=== PATIENT | male | born 1930 | race Caucasian/White ===

== ENCOUNTER 2020-08-29 08:56 | Outpatient (CLI) | payer MEDICARE ==
[2020-08-29 11:12] LABS: #Eosinphils 0.4 10x3/uL (0.0-0.5); #Monocytes 0.8 10x3/uL (0.0-1.1); #Neutrophils 5.8 10x3/uL (1.5-8.4); %Basophils 0.4 % (0.0-2.0); %Eosinophils 4.5 % (0.0-6.0); %Lymphocytes 16.9 % (18.0-47.0); %Monocytes 9.6 % (0.0-10.0); %Neutrophils 68.2 % (40.0-75.0); Hemoglobin 11.8 g/dL (13.5-17.5); Mean Corpuscular HGB CONC 32.2 g/dL (32.0-36.0); Mean Corpuscular Hemoglobin 29.4 pg (27.0-33.0); Mean Corpuscular Volume 91.3 fl (81.2-95.1); Mean Platelet Volume 12.4 fl (7.4-10.4); Platelet Count 214 10x3/uL (150-450); RBC Distribution Width 12.8 % (11.5-14.5); Red Blood Cell (RBC) Count 4.01 10x6/uL (4.32-5.72); White Blood Cell (WBC) Count 8.5 10x3/uL (3.5-10.5)
[2020-08-29 11:44] LABS: Anion Gap 16 mmol/L (10-20); BUN (Urea Nitrogen) 17 mg/dL (8.4-25.7); Calc. Creatinine Clearance 0 mL/min (70-130); Calcium 9.5 mg/dL (7.8-10.44); Carbon Dioxide 23 mmol/L (23-31); Chloride 106 mmol/L (98-107); Glucose 102 mg/dL (83-110); Potassium 4.5 mmol/L (3.5-5.1); Sodium 140 mmol/L (136-145)
[2020-08-29 22:58] LABS: SARS-CoV-2 PCR by NAA Not Detected (NotDetected)
== END 2020-08-29 08:57 | disposition home or self-care (01) ==
LOC: LABBT 08:56
PROVIDERS: ATTEND Orthopaedic Surgery
DX: Z01.818 Encounter for other preprocedural examination (principal); Z01.812 Encounter for preprocedural laboratory examination; M65.321 Trigger finger, right index finger; Z20.822 Contact with and (suspected) exposure to COVID-19
CPT/HCPCS: 80048; 85025; 93005; U0003; U0005; 87635; 93010

== ENCOUNTER 2020-09-01 06:16 | Day surgery (SDC) | payer MEDICARE ==
[2020-08-31 08:40] VITALS: BMI 24.3
[2020-09-01] MEDS ORDERED: Lidocaine 1% w/Epinephrine 1:100K 20 ML VIAL ONE (06:54)
[2020-09-01] MEDS ORDERED: Fentanyl 100 MCG/2 ML VIAL ONE (07:16)
[2020-09-01] MEDS ORDERED: Propofol 500 MG/50 ML VIAL ONE (07:16)
[2020-09-01] MEDS ORDERED: Midazolam HCl 2 mg/2 ml Vial ONE (07:16)
[2020-09-01] MEDS ORDERED: Ketamine 50 MG/ML (10ML VIAL) ONE (07:16)
[2020-09-01] MEDS ORDERED: ePHEDrine 50 MG/ML VIAL ONE (07:28)
[2020-09-01] MEDS ORDERED: PROPOFOL 200 MG/20 ML VIAL ONE (07:28)
== END 2020-09-01 09:30 | disposition home or self-care (01) ==
LOC: SDC 06:16
PROVIDERS: ATTEND Orthopaedic Surgery
PROC: 0LN70ZZ Release Right Hand Tendon, Open Approach (ICD-10-PCS; principal; 2020-09-01)
DX: M65.321 Trigger finger, right index finger (principal); I10 Essential (primary) hypertension; E78.00 Pure hypercholesterolemia, unspecified; J45.909 Unspecified asthma, uncomplicated; Z87.891 Personal history of nicotine dependence; Z79.82 Long term (current) use of aspirin; Z79.899 Other long term (current) drug therapy; Z95.0 Presence of cardiac pacemaker
CPT/HCPCS: J0690; J2250; J2704; J3010; J3490

== ENCOUNTER 2020-09-28 13:03 | Observation (INO) | payer MEDICARE ==
[2020-09-28 14:07] LABS: #Eosinphils 0.1 thou/uL (0.0-0.7); #Lymphocytes 1.1 thou/uL (1.20-3.40); #Monocytes 0.7 thou/uL (0.11-0.59); #Neutrophils 10.7 thou/uL (1.40-6.50); %Basophils 0.3 % (0.0-1.0); %Eosinophils 1.1 % (0.0-10.0); %Lymphocytes 8.6 % (21.0-51.0); %Monocytes 5.2 % (0.0-10.0); %Neutrophils 84.9 % (42.0-75.0); Mean Corpuscular HGB CONC 33.5 g/dL (32.0-36.0); Mean Corpuscular Hemoglobin 30.2 pg (27.0-31.0); Mean Corpuscular Volume 90.2 fL (78.0-98.0); Mean Platelet Volume 10.2 fL (7.4-10.4); Platelet Count 169 thou/uL (130-400); RBC Distribution Width 11.4 % (11.5-14.5); Red Blood Cell (RBC) Count 3.96 mill/uL (4.70-6.10); White Blood Cell (WBC) Count 12.7 thou/uL (4.8-10.8)
[2020-09-28 14:28] LABS: Albumin 4.2 g/dL (3.4-4.8); Anion Gap 16 mmol/L (10-20); Calcium 9.7 mg/dL (7.8-10.44); Carbon Dioxide 23 mmol/L (23-31); Chloride 103 mmol/L (98-107); Globulin 2.5 g/dL (2.4-3.5); Glucose 102 mg/dL (83-110); Potassium 4.2 mmol/L (3.5-5.1); Protein, Total 6.7 g/dL (5.8-8.1); Sodium 138 mmol/L (136-145)
[2020-09-28 14:30] LABS: Alkaline Phosphatase 112 U/L (40-110); Calc. Creatinine Clearance 0 mL/min (70-130)
[2020-09-28 14:31] LABS: BUN (Urea Nitrogen) 27 mg/dL (8.4-25.7)
[2020-09-28 14:32] LABS: AST (SGOT) 21 U/L (5-34)
[2020-09-28 14:33] LABS: ALT (SGPT) 11 U/L (8-55)
[2020-09-28 14:40] LABS: CK (CPK) 144 U/L (30-200); Lipase 23 U/L (8-78)
[2020-09-28] MEDS ORDERED: Lorazepam 1 MG TAB ONE (17:21)
[2020-09-28] MEDS ORDERED: Senokot S 8.6-50 MG TAB PO PRN (17:31)
[2020-09-28] MEDS ORDERED: Ondansetron PF 4 MG/2 ML Vial IVP PRN (17:31)
[2020-09-28] MEDS ORDERED: Acetaminophen 325 MG TAB PO PRN (17:31)
[2020-09-28] MEDS ORDERED: traMADol HCl 50 MG TAB PO PRN (23:57)
[2020-09-28] MEDS ORDERED: Fluticasone Propionate Nasal Spray 16 gm Bottle NASAL PRN (23:57)
[2020-09-29] MEDS ORDERED: Lorazepam 0.5 MG TAB PO PRN (01:07)
[2020-09-29 03:39] LABS: SARS-CoV-2 NAA Rapid Test Not Detected (NotDetected)
[2020-09-29] MEDS ORDERED: Budesonide 0.5 MG/2 ML NEB NEB SCH (06:30)
[2020-09-29] MEDS ORDERED: Arformoterol 15 MCG/2 ML NEB NEB SCH (06:30)
[2020-09-29] MEDS ORDERED: Lidocaine 1% (PF) 30 ML VIAL ONE (06:50)
[2020-09-29] MEDS ORDERED: Gentamicin 80 MG/2 ML VIAL ONE (06:50)
[2020-09-29] MEDS ORDERED: CEFAZOLIN 1 GM VIAL ONE (06:50)
[2020-09-29 07:48] LABS: Anion Gap 11 mmol/L (10-20); BUN (Urea Nitrogen) 17 mg/dL (8.4-25.7); Calc. Creatinine Clearance 53 mL/min (70-130); Calcium 9.2 mg/dL (7.8-10.44); Carbon Dioxide 28 mmol/L (23-31); Chloride 103 mmol/L (98-107); Glucose 93 mg/dL (83-110); Potassium 3.5 mmol/L (3.5-5.1); Sodium 138 mmol/L (136-145)
[2020-09-29 08:06] LABS: #Eosinphils 0.5 thou/uL (0.0-0.7); #Lymphocytes 1.5 thou/uL (1.20-3.40); #Monocytes 0.6 thou/uL (0.11-0.59); #Neutrophils 4.2 thou/uL (1.40-6.50); %Basophils 0.2 % (0.0-1.0); %Eosinophils 7.2 % (0.0-10.0); %Lymphocytes 21.9 % (21.0-51.0); %Monocytes 9.1 % (0.0-10.0); %Neutrophils 61.7 % (42.0-75.0); Mean Corpuscular Hemoglobin 30.1 pg (27.0-31.0); Mean Corpuscular Volume 91.1 fL (78.0-98.0); Mean Platelet Volume 9.8 fL (7.4-10.4); Platelet Count 187 thou/uL (130-400); RBC Distribution Width 11.5 % (11.5-14.5); White Blood Cell (WBC) Count 6.9 thou/uL (4.8-10.8)
[2020-09-29] MEDS ORDERED: Montelukast Sodium 10 mg Tablet PO SCH (09:00)
[2020-09-29] MEDS ORDERED: Hydrochlorothiazide 25 MG TAB PO SCH (09:00)
[2020-09-29] MEDS ORDERED: Amlodipine 5 MG TAB PO SCH (09:00)
[2020-09-29] MEDS ORDERED: Loratadine 10 MG TAB PO SCH (09:00)
[2020-09-29 12:13] VITALS: BP 167/79; TEMP 96.3
[2020-09-29] MEDS ORDERED: Atorvastatin Calcium 40 MG TAB PO SCH (21:00)
[2020-09-29] MEDS ORDERED: Losartan 25 MG TAB PO SCH (21:00)
[2020-09-29] MEDS ORDERED: Sodium Chloride 0.9% 500 ML IV SCH (23:59)
== END 2020-09-29 14:09 | disposition home or self-care (01) ==
LOC: ERS 13:03 → ERHOLD 16:27 → 2SW 22:52
PROVIDERS: ADMIT Internal Medicine; ATTEND Family Medicine
PROC: 0JPT0PZ Removal of Cardiac Rhythm Related Device from Trunk Subcutaneous Tissue and Fascia, Open Approach (ICD-10-PCS; principal; 2020-09-29)
PROC: 0JH606Z Insertion of Pacemaker, Dual Chamber into Chest Subcutaneous Tissue and Fascia, Open Approach (ICD-10-PCS; 2020-09-29)
DX: Z45.010 Encounter for checking and testing of cardiac pacemaker pulse generator [battery] (principal); I44.2 Atrioventricular block, complete; R00.1 Bradycardia, unspecified; R53.1 Weakness; R53.83 Other fatigue; I25.10 Atherosclerotic heart disease of native coronary artery without angina pectoris; I10 Essential (primary) hypertension; E78.5 Hyperlipidemia, unspecified; N17.9 Acute kidney failure, unspecified; I25.2 Old myocardial infarction; J44.9 Chronic obstructive pulmonary disease, unspecified; Z87.891 Personal history of nicotine dependence; Z79.82 Long term (current) use of aspirin; Z79.899 Other long term (current) drug therapy; Z95.5 Presence of coronary angioplasty implant and graft; Z20.822 Contact with and (suspected) exposure to COVID-19
CPT/HCPCS: 33228; 71045; 80048; 80053; 82550; 83690; 83880; 84484; 85025 ×2; 93005; 94640 ×2; 99285; C1785; G0378 ×3; U0002; 36415; J0690; J1580; J2001; J7626